=== PATIENT | female | born 1945 | race Caucasian/White ===

== ENCOUNTER 2024-08-16 16:47 | Emergency (ER) | payer MEDICARE, BC, SELFPAY ==
[2024-08-16 16:47] VITALS: BMI 40.6
[2024-08-16 16:49] VITALS: BP 106/63
--- NOTE | 2024-08-16 19:04 | ED.GENMED ---
History of Present Illness
General
Chief Complaint: Fall
Source: patient
Time Seen by Provider: 08/16/24 18:30
History of Present Illness
History of Present Illness:
79-year-old female presents to the emergency room for evaluation after suffering a fall at home. Patient has a history of dementia and Parkinson's. She is supposed to use a walker to ambulate but will frequently attempt to get from her bed to a
chair that is close to the bed without the walker. Today she did so and fell backwards. No LOC. Patient does not take any anticoagulants. She appears to be at her baseline mental status per her family. She lives with her and also has
aides in the home. Patient offers no complaints other than wanting to go home.
Past History
Past History
ED Past Medical History: Asthma, Other (Fibromyalgia) and Other (Musculoskeletal pain)
ED Past Surgical History: Orthopedic
Social History
Tobacco: Non-smoker
Alcohol: Occasional
Drug: None
Personal:
Living: with family
Family History
Family History: Other
Phy Exam
Physical Exam
Physical Exam:
General: Awake, Alert, Oriented to person and place. No acute distress. Appears stated age
Vitals: unremarkable
Head: Atraumatic
Eyes: Pupils equal, EOMI
Throat: Airway intact, no exudates
Neck: Trachea midline
Lungs: Clear and equal b/l
Heart: Regular rate, no murmurs
Abd: Soft, Nontender, No pulsatile mass
Back: No tenderness to palpation of the midline cervical or thoracic spine. No pain to palpation of the paraspinal musculature nor the posterior thorax.
Neuro: Cranial nerves intact, muscle strength equal bilaterally, cerebellar exam normal
Skin: Warm, dry, no rash
Extremities: pulses equal b/l, no edema. No pain to palpation or range of motion of the ankles, knee, hip, elbow or shoulder.
Course
Orders/Labs/Results
Orders:
Orders
08/16/24 16:51
CT Head W/o Iv Contrast Urgent
Comment:
Reason For Exam: fall
Cervical Spine wo Contrast CT [CT Cervical Spine W/o Iv Contr] Urgent
Comment:
Reason For Exam: fall
Vital Signs
Initial and Last Documented VS:
Initial Vital Signs
Temp Pulse Resp BP Pulse Ox
98.7 F 79 16 106/63 99
08/16/24 16:49 08/16/24 16:49 08/16/24 16:49 08/16/24 16:49 08/16/24 16:49
Last Documented Vital Signs
Temp Pulse Resp BP Pulse Ox
98.7 F 74 20 129/67 97
08/16/24 16:49 08/16/24 19:16 08/16/24 19:16 08/16/24 19:16 08/16/24 19:16
MDM/Problems Addressed
Differential Diagnosis Includes:
Subdural hematoma, subarachnoid, cervical spine fracture, contusion
MDM/Problems Addressed:
Imaging shows no acute fracture. Physical exam does not suggest any acute injury to the thoracic spine, chest or abdomen. Patient did ambulate to the bathroom. Stable for discharge home to the care of her family.
*Radiology
Radiology exam reviewed: preliminary read by ED provider (I personally reviewed the patient's head CT and cervical spine imaging) and radiology read reviewed
*Pulse Oximetry
Patient hypoxic: no
*Critical Care Note
Total Time (30-74mins, 75-104mins- exclusive of procedures): Not Applicable
Patient Management
Social determinants of health affecting care: Strong social support
ED Attending Note
-
Portions of this chart may have been created with voice recognition software.� Occasional wrong word or��sound alike� substitutions may have occurred due to the inherent limitations of voice recognition software.
Discharge Plan
Departure
Patient Disposition: Home (Routine Discharge)
Date of Disposition: 03/26/25
Time of Disposition: 19:10
Patient with high blood pressure during this ER visit?: No
Condition: Good
Discharge Problem:
Head injury
Instructions: Head Injury in Adults (DC), Preventing falls in adults
Prescriptions:
No Action
levothyroxine 50 MCG tablet
50 mcg PO DAILY@0700
albuterol sulfate 1 PUFF HFA aerosol inhaler
2 puff inhalation R Q4HPRN PRN (Reason: SOB)
Patient Comments:
last taken 3 weeks ago
duloxetine 30 MG capsule,delayed release(DR/EC)
30 mg PO DAILY
Prevagin
1 tab PO DAILY
mupirocin 1 APPLIC ointment
1 applic topical BID Qty: 1 0RF
Patient Comments:
Patient started this medication on 07/21/20 in the morning. Will be administered this morning on SDS.
oxycodone 5 MG tablet
5 mg PO Q4HPRN PRN (Reason: moderate-severe pain) Qty: 30 0RF
Rx Instructions:
Dx total joint replacement
ongoing therapy
amlodipine 2.5 MG tablet
2.5 mg PO DAILY Qty: 0 0RF
Rx Instructions:
Hold if systolic blood pressure <130 while on Oxycodone.
acetaminophen [Tylenol Extra Strength] 500 MG tablet
1,000 mg PO Q6H Qty: 0 0RF
Rx Instructions:
Do not exceed >4000 mg daily.
docusate sodium 100 MG capsule
100 mg PO BID Qty: 30 0RF
sennosides [senna] 8.6 MG capsule
8.6 mg PO BID Qty: 30 0RF
aspirin 325 MG tablet
325 mg PO DAILY Qty: 28 0RF
Rx Instructions:
Take daily x4 weeks for blood clot prevention.
OK per Dr. Zelaya.
tizanidine 2 MG tablet
2 mg PO BIDPRN PRN (Reason: pain) Qty: 20 0RF
Interventions
Interventions:
*Risk Screen - Suicide Last Done: 08/16/24 16:55
*Neglect/Abuse Screening Last Done: 08/16/24 16:55
*Nursing Disposition Last Done: 08/16/24 19:58
ED-Musculoskeletal Assessment Last Done: 08/16/24 19:17
ED- Neurological Assessment Last Done: 08/16/24 19:17
ED-Skin Assessment Last Done: 08/16/24 19:17
Discharge Date and Time
Discharge Date/Time: 08/16/24 19:59
Print Language: GABONESE
[2024-08-16 19:16] VITALS: BP 129/67
== END 2024-08-16 19:59 | disposition home or self-care (01) ==
LOC: EMR 16:47
PROVIDERS: EMERGENCY PHYSICIAN Emergency Medicine; FAMILY PHYSICIAN Student in an Organized Health Care Education/Training Program
DX: S09.90XA Unspecified injury of head, initial encounter (principal); W19.XXXA Unspecified fall, initial encounter; F02.80 Dementia in other diseases classified elsewhere, unspecified severity, without behavioral disturbance, psychotic disturbance, mood disturbance, and anxiety; G20.A1 Parkinson's disease without dyskinesia, without mention of fluctuations; J45.909 Unspecified asthma, uncomplicated; M79.7 Fibromyalgia
CPT/HCPCS: 99284; 70450; 72125

== ENCOUNTER 2024-09-08 11:16 | Emergency (ER) | payer MEDICARE, BC, SELFPAY ==
[2024-09-08 11:20] VITALS: BP 136/63
--- NOTE | 2024-09-08 11:49 | ED.GENMED ---
History of Present Illness
General
Chief Complaint: Fall
Source: patient
Time Seen by Provider: 09/08/24 11:37
History of Present Illness
History of Present Illness:
79-year-old female presents to the emergency room for evaluation after having a fall. Patient has significant dementia and was getting out of bed when she lost her balance and fell landing against the baseboard of the bed. She has pain in her left
shoulder and left wrist as well as her back. No head strike. She does not take any oral anticoagulants. Patient is right-hand dominant. Given her dementia she is unable provide any history. She does not remember the fall. She indicates she has
pain with any movement of the left shoulder.
Past History
Past History
ED Past Medical History: Asthma, Other (Fibromyalgia) and Other (Musculoskeletal pain)
ED Past Surgical History: Orthopedic
Social History
Tobacco: Non-smoker
Alcohol: Occasional
Drug: None
Personal:
Living: with family
Family History
Family History: Other
Phy Exam
Physical Exam
Physical Exam:
General: Awake, confused, oriented to person
Vitals: unremarkable
Head: Atraumatic
Eyes: Pupils equal, EOMI
Throat: Airway intact, no exudates
Neck: Trachea midline, no tenderness palpation of the cervical spine
Lungs: Clear and equal b/l
Heart: Regular rate, no murmurs
Abd: Soft, Nontender, No pulsatile mass
Neuro: Nonfocal
Skin: Warm, dry, no rash
Extremities: pulses equal b/l, swelling and tenderness proximal left humerus. Swelling swelling noted left wrist.
Course
Orders/Labs/Results
Orders:
Orders
09/08/24 11:26
Shoulder, Left, Trauma CR [CR Shoulder, Trauma - Left] Urgent
Comment:
Reason For Exam: fall, pain
Wrist, Left 3 Views CR [CR Wrist - Left Min 3 Views] Urgent
Comment:
Reason For Exam: fall, pain
09/08/24 11:45
HYDROmorphone [Dilaudid] 0.25 mg IV NOW STA
09/08/24 12:40
CT Lumbar Spine W/o Iv Contras Urgent
Comment:
Reason For Exam: fall, ? comp fx
Sling Left-Treatment ONCE
Splints/Slings/Crut- Treatment ONCE
Location: Left
Type of Splint: Volar
09/08/24 14:38
Case Management Consult ONCE
Case Management Consult: Discharge Planning
HYDROmorphone [Dilaudid] 0.5 mg IV NOW STA
09/08/24 15:09
Straight cath- Treatment ONCE
09/08/24 16:05
Urinalysis Reflex To Culture Urgent
Date Specimen was Collected: 09/08/24
Time Specimen was Collected: 15:21
Urine Microscopic Reflex Cult Urgent
Urine Culture Urgent
SLY Source: U
Specimen Description:
Date Specimen was Collected: 09/08/24
Time Specimen was Collected: 15:21
Abnormal Lab Results
09/08/24
16:05
Ur Occult Blood Reflex 2+ A
(Negative)
Leukocyte Esterase Rfl 3+ A
(Negative)
Urine RBC 3-6 A /HPF
(0-2)
Urine Bacteria (Reflex) Moderate A
(Negative)
Urine Albumin (Reflex) 2+ A
(Neg - Trace)
Vital Signs
Initial and Last Documented VS:
Initial Vital Signs
Temp Pulse Resp BP Pulse Ox
97.8 F 63 16 136/63 98
09/08/24 11:20 09/08/24 11:20 09/08/24 11:20 09/08/24 11:20 09/08/24 11:20
Last Documented Vital Signs
Temp Pulse Resp BP Pulse Ox
97.8 F 71 16 142/72 98
09/08/24 11:20 09/08/24 16:00 09/08/24 16:00 09/08/24 16:00 09/08/24 16:00
Procedures
Splint Check
Splint checked by provider?: Yes
Circulation/Movement/Sensation post splint application: brisk cap refill
MDM/Problems Addressed
Differential Diagnosis Includes:
Left shoulder dislocation, left proximal humerus fracture, left wrist fracture
MDM/Problems Addressed:
Patient presents with injuries after a fall. She has no head or neck injury. Her plain films show a fracture of the proximal humerus as well as the left wrist. Fortunately the left wrist fractures are well aligned. Volar splint placed there.
Sling for the shoulder fracture. Patient was complaining of some low back pain as well. A CT of the lumbar spine was obtained which shows a very minor compression fracture of L2. Patient has an aide at home. We discussed hospitalization with its
potential negative effects on a patient with significant dementia versus treatment at home. Family after treatment at home. Oxycodone prescription sent. Follow-up with Ortho
*Radiology
Radiology exam reviewed: preliminary read by ED provider (Proximal humerus fracture, distal radius and ulna fracture)
*Pulse Oximetry
Patient hypoxic: no
*Critical Care Note
Total Time (30-74mins, 75-104mins- exclusive of procedures): Not Applicable
ED Attending Note
-
Portions of this chart may have been created with voice recognition software.� Occasional wrong word or��sound alike� substitutions may have occurred due to the inherent limitations of voice recognition software.
Discharge Plan
Departure
Patient Disposition: Home (Routine Discharge)
Date of Disposition: 09/08/24
Time of Disposition: 15:56
Patient with high blood pressure during this ER visit?: Yes
Condition: Fair
Discharge Problem:
Fracture of proximal end of humerus, Fracture of distal end of radius and ulna
Instructions: Vertebral Compression Fracture ED, Upper Arm Fracture ED, BLOOD PRESSURE, Wrist Fracture
Prescriptions:
New
oxycodone 5 mg tablet
5 mg PO Q6H PRN (Reason: Pain) Qty: 12 0RF
No Action
levothyroxine 50 MCG tablet
50 mcg PO DAILY@0700
albuterol sulfate 1 PUFF HFA aerosol inhaler
2 puff inhalation R Q4HPRN PRN (Reason: SOB)
Patient Comments:
last taken 3 weeks ago
duloxetine 30 MG capsule,delayed release(DR/EC)
30 mg PO DAILY
Prevagin
1 tab PO DAILY
mupirocin 1 APPLIC ointment
1 applic topical BID Qty: 1 0RF
Patient Comments:
Patient started this medication on 07/21/20 in the morning. Will be administered this morning on SDS.
oxycodone 5 MG tablet
5 mg PO Q4HPRN PRN (Reason: moderate-severe pain) Qty: 30 0RF
Rx Instructions:
Dx total joint replacement
ongoing therapy
amlodipine 2.5 MG tablet
2.5 mg PO DAILY Qty: 0 0RF
Rx Instructions:
Hold if systolic blood pressure <130 while on Oxycodone.
acetaminophen [Tylenol Extra Strength] 500 MG tablet
1,000 mg PO Q6H Qty: 0 0RF
Rx Instructions:
Do not exceed >4000 mg daily.
docusate sodium 100 MG capsule
100 mg PO BID Qty: 30 0RF
sennosides [senna] 8.6 MG capsule
8.6 mg PO BID Qty: 30 0RF
aspirin 325 MG tablet
325 mg PO DAILY Qty: 28 0RF
Rx Instructions:
Take daily x4 weeks for blood clot prevention.
OK per Dr. Zelaya.
tizanidine 2 MG tablet
2 mg PO BIDPRN PRN (Reason: pain) Qty: 20 0RF
Referrals:
Ramirez Hendricks MD [Family Provider] -
Jaxon Zelaya MD [Active] -
Interventions
Interventions:
*Risk Screen - Suicide Last Done: 09/08/24 11:47
*General Assessment Last Done: 09/08/24 11:20
*Neglect/Abuse Screening Last Done: 09/08/24 11:20
*ED- Fall Risk Assessment Last Done: 09/08/24 11:28
*ED COVID-19 Vaccine History Last Done: 09/08/24 11:28
*Nursing Disposition Last Done: 09/08/24 17:12
ED-Musculoskeletal Assessment Last Done: 09/08/24 11:47
ED- Neurological Assessment Last Done: 09/08/24 11:47
ED-Skin Assessment Last Done: 09/08/24 11:47
Discharge Date and Time
Discharge Date/Time: 09/08/24 17:13
Print Language: AFGHAN
[2024-09-08] MEDS: DILAUDID 0.25 MG IV (11:56)
[2024-09-08 14:00] VITALS: BP 135/59
[2024-09-08] MEDS: DILAUDID 0.5 MG IV (14:49)
--- NOTE | 2024-09-08 15:36 | CM ---
CM following re: discharge planning.
CM consulted to assist pt with discharge planning.
Reviewed pt's chart, met with pt. pt's and pt's caregiver at bedside.
Pt is a 79 year old female, arrived to ED after she fell at home.
Pt is not a great historian due to Dementia, information obtained from pt's . Pt lives with in a rancher, ambulates with a walker and a cane, has transport chair, has 8 hours of private paid caregiver services per day. Per pt
is known to [facility].
Per MD there is no reason to admit the pt. Pt's expressed his agreement to bring the pt home and he is requested VN: RN, Pt, OT, home health aid services.
A referral to [facility] made, spoke to [facility] liaison and she will meet with pt and her family shortly.
Please fax discharge instructions to [facility] at [phone].
D/C plan: home with [facility], resumptions of caregiver services and family support. and caregiver to transport pt home.
[2024-09-08 16:00] VITALS: BP 142/72
--- NOTE | 2024-09-08 16:11 | VNURNOTE ---
Home Health Liaison met with patient and spouse and private CG at bedside to discuss [facility] nurse[facility]therapy, visits, schedule and homebound status. All are agreeable and understands that visits at home will be 2-3 x per week to assess and teach medical
management.
[facility] brochure provided with contact information. All are aware that [facility] will contact them for start of care in 1-2 days after discharge from . [facility].
[2024-09-08 16:24] LABS: Urine Albumin 2+ (Neg - Trace); Urine Bilirubin Negative (Negative); Urine Character Clear (Clear); Urine Color Yellow; Urine Glucose Negative (Negative); Urine Ketone Negative (Negative); Urine Leukocyte 3+ (Negative); Urine Nitrite Negative (Negative); Urine Occult Blood 2+ (Negative); Urine Specific Gravity 1.025 (<1.030); Urine Urobilinogen Negative (Neg - 1+)
[2024-09-08 16:33] LABS: Urine Bacteria Moderate (Negative); Urine Mucus Moderate; Urine Squamous Cell 0-2 /LPF (Few)
== END 2024-09-08 17:13 | disposition home or self-care (01) ==
LOC: EMR 11:16
PROVIDERS: EMERGENCY PHYSICIAN Emergency Medicine; FAMILY PHYSICIAN Student in an Organized Health Care Education/Training Program
DX: S42.212A Unspecified displaced fracture of surgical neck of left humerus, initial encounter for closed fracture (principal); S52.572A Other intraarticular fracture of lower end of left radius, initial encounter for closed fracture; S52.612A Displaced fracture of left ulna styloid process, initial encounter for closed fracture; W06.XXXA Fall from bed, initial encounter; F03.90 Unspecified dementia, unspecified severity, without behavioral disturbance, psychotic disturbance, mood disturbance, and anxiety
CPT/HCPCS: 99285; 96374; 29125; 96376; 72131; 73030; 73110; 81003; 81015; 87077; 87086

== ENCOUNTER → 2024-09-28 16:30 | Outpatient (REF) | payer MEDICARE, BC, SELFPAY ==
[2024-09-29 11:38] LABS: Urine Albumin 1+ (Neg - Trace); Urine Character Clear (Clear); Urine Color Yellow; Urine Leukocyte Negative (Negative); Urine Nitrite Negative (Negative); Urine Specific Gravity 1.015 (<1.030)
[2024-09-29 11:39] LABS: Urine Bilirubin Negative (Negative); Urine Glucose Negative (Negative); Urine Ketone Negative (Negative); Urine Occult Blood Negative (Negative); Urine Red Blood Cell 0-2 /HPF (0-2); Urine Squamous Cell 0-2 /LPF (Few); Urine Urobilinogen Negative (Neg - 1+)
[2024-09-29 11:40] LABS: Urine Bacteria Few (Negative); Urine White Cell 0-2 /HPF (0-5)
== END ==
LOC: OLAB 16:30
PROVIDERS: ATTENDING PHYSICIAN Student in an Organized Health Care Education/Training Program
DX: N39.0 Urinary tract infection, site not specified (principal)
CPT/HCPCS: 81003; 81015

== ENCOUNTER → 2024-10-19 16:54 | Outpatient (REF) | payer MEDICARE, BC, SELFPAY ==
[2024-10-19 17:17] LABS: Hematocrit 33.8 % (37.0-47.0); Hemoglobin 11.1 g/dL (12.0-16.0); Mean Corp Hgb Conc. 32.8 g/dL (33.0-37.0); Mean Corpuscular Hgb 33.5 pg (27.0-31.0); Mean Corpuscular Volume 102.1 fL (81.0-99.0); Mean Platelet Volume 10.4 fL (7.4-10.4); Platelet Count 225 10^3/uL (130-400); Red Blood Cell Count 3.31 10^6/uL (4.20-5.40); Red Cell Dist. Width 13.7 % (11.5-14.5); White Blood Cell Count 5.8 10^3/uL (4.8-10.8)
[2024-10-19 17:21] LABS: ALT (SGPT) < 10 U/L (0-35); AST (SGOT) 20 U/L (14-36); Albumin 3.9 g/dl (3.5-5.0); Alkaline Phosphatase 88 U/L (38-126); Blood Urea Nitrogen 21 mg/dl (7-17); Calcium 9.1 mg/dl (8.4-10.2); Carbon Dioxide 29 mmol/L (22-30); Chloride 105 mmol/L (98-107); Glucose 122 mg/dl (70-99); Potassium 4.1 mmol/L (3.5-5.1); Sodium 141 mmol/L (135-145); Total Bilirubin 0.4 mg/dl (0.2-1.3); Total Protein 7.1 g/dl (6.3-8.2); eGFR > 60.00
[2024-10-19 17:55] LABS: TSH 0.66 uIU/ml (0.47-4.68)
[2024-10-19 18:13] LABS: Vitamin B12 632 pg/ml (239-931)
[2024-10-20 10:06] LABS: Glycohemoglobin (HgbA1c) 5.4 % (4.0-5.6)
== END ==
LOC: CLAB 16:54
PROVIDERS: ATTENDING PHYSICIAN Student in an Organized Health Care Education/Training Program
DX: F03.90 Unspecified dementia, unspecified severity, without behavioral disturbance, psychotic disturbance, mood disturbance, and anxiety (principal); R73.09 Other abnormal glucose; Z00.00 Encounter for general adult medical examination without abnormal findings; E03.9 Hypothyroidism, unspecified
CPT/HCPCS: 36415; 80053; 82607; 83036; 84443; 85027